=== PATIENT | female | born 1975 | race Caucasian/White ===

== ENCOUNTER 2020-04-10 13:29 | Emergency (ER) | payer OTHER ==
--- NOTE | 2020-04-10 13:45 | ED Physician Documentation ---
PD HPI ALTERED MENTAL STATUS - Stated complaint Stated Complaint: TAIL BONE PAIN - Chief complaint Chief Complaint: Back Pain - History obtained from History obtained from: Patient (44-year-old woman fell a few days ago directly onto her buttocks and has persistent pain in the gluteal crease. She took ibuprofen prior to arrival and declines of the pain medication. She does note intermittent tingling of both legs and the right ankle swelled without specific injury or pain ther) Review of Systems Constitutional: denies: Fever, Chills Cardiac: denies: Chest pain / pressure, Palpitations Respiratory: denies: Dyspnea, Cough PD PAST MEDICAL HISTORY - Past Surgical History Past Surgical History: Yes /[employer]: section - Present Medications Home Medications: Ambulatory Orders Medication Instructions Recorded Confirmed Ibuprofen [Motrin] 400 mg PO Q6H 10/14/13 10/14/13 - Allergies Allergies/Adverse Reactions: Allergies Allergy/AdvReac Type Severity Reaction Status Date / Time morphine AdvReac Respiratory Verified 10/14/13 17:15 - Social History Does the pt smoke?: Yes Smoking Status: Current every day smoker Does the pt drink ETOH?: Yes Does the pt have substance abuse?: No - Immunizations Immunizations are current?: Yes - POLST Patient has POLST: No PD ED PE NORMAL - Vitals Vital signs reviewed: Yes - General General: Alert and oriented X 3, No acute distress - HEENT HEENT: PERRL, EOMI - Neck Neck: Supple, no meningeal sign, No bony TTP - Back Back: Other (Tender over the low slight sacrum/coccyx) - Extremities Extremities: Other (Very mild swelling of the ankle itself, but it is not tender, full range of motion. No calf tenderness or asymmetry.) - Neuro Neuro: Alert and oriented X 3, Other (The patient has equal and normal Achilles and patellar reflexes bilaterally. Normal sensation in all areas of the legs. Patient denies saddle anesthesia. Normal strength in flexion-extension at the ankles, knees, and flexion of the hips.) Results - Vitals Vitals: Vital Signs - 24 hr 04/10/20 04/10/20 13:36 13:45 Temperature 36.5 C Heart Rate 89 79 Respiratory 16 16 Rate Blood Pressure 138/78 H 152/93 H O2 Saturation 100 98 Oxygen O2 Source Room air - Rads (name of study) Sacrum/coccyx XR Radiology: EMP read contemporaneously (neg) Departure - Departure Disposition: 01 Home, Self Care Clinical Impression: Coccyx contusion Qualifiers: Encounter type: initial encounter Qualified Code(s): S30.0XXA - Contusion of lower back and pelvis, initial encounter Condition: Good Record reviewed to determine appropriate education?: Yes Instructions: ED Contusion Back Comments: Continue ibuprofen as needed for pain, monitor your symptoms and return if worsening. Follow-up with your doctor in a week if not starting to improve. Forms: Activity restrictions
--- NOTE | 2020-04-10 14:35 | XRAY Report ---
PROCEDURE: Sacrum/Coccyx INDICATIONS: back inj TECHNIQUE: 3 views of the sacrum and coccyx acquired. COMPARISON: None FINDINGS: Bones: No fractures or dislocations. No suspicious bony lesions. Soft tissues: Visualized bowel gas pattern is normal. No suspicious soft tissue densities. IMPRESSION: No acute fracture. No osseous lesion. If symptoms and/or clinical suspicion for pathology continue, f urther assessment with repeat plain films, or advanced imaging (e.g., CT, MRI, or bone scan) is recom mended for further assessment. Reviewed by: Macey Granger MD on 04/10/2020 1:34 PM [facility] Approved by: Macey Granger MD on 04/10/2020 1:34 PM [facility] Station ID: [id number]
[2020-04-10 14:48] VITALS: BP 130/54
== END 2020-04-10 14:51 | disposition home or self-care (01) ==
LOC: ED 13:29
DX: S30.0XXA Contusion of lower back and pelvis, initial encounter (principal); W10.9XXA Fall (on) (from) unspecified stairs and steps, initial encounter; F17.200 Nicotine dependence, unspecified, uncomplicated; M25.471 Effusion, right ankle
CPT/HCPCS: 72220; 99282; 99283